=== PATIENT | male | born 1970 | race African-American/Black ===

== ENCOUNTER → 2019-06-14 12:00 | Outpatient (CLI) | payer OTHER, SELFPAY ==
--- NOTE | ~2019-06-14 | XR_ITS ---
XR chest 2V DATE: 06/14/2019 12:17 INDICATION: Cough TECHNIQUE: 2 views COMPARISON: None FINDINGS: Normal heart size. No hilar or mediastinal enlargement. No pulmonary infiltrate or consolidation, pleural effusion or pulmonary vascular congestion or pneumo thorax. IMPRESSION: No active cardiopulmonary disease Reviewed, dictated and finalized at location A.
== END ==
PROVIDERS: PCP Internal Medicine; Visit Provider Internal Medicine
DX: R05 Cough (principal)
CPT/HCPCS: 71046

== ENCOUNTER 2022-09-04 14:24 | Emergency (ER) | payer OTHER, SELFPAY ==
--- NOTE | 2022-09-04 14:29 | ED.URI ---
HPI - URI/Sore Throat General Chief Complaint: Upper Respiratory Infection Stated Complaint: cold symptoms Time Seen by Provider: 09/04/22 14:29 Source: patient Mode of arrival: ambulatory Limitations: no limitations History of Present Illness HPI Narrative: Patient is a 52-year-old male who presents with 2 weeks of cough along with intermittent congestion and sore throat. Patient has 1-year-old who goes to daycare and that has been having fevers and congestion. Denies any seasonal allergies and has not taken anything for symptoms. Denies any fever, chills, ear pain, sinus pressure, nausea, vomiting, diarrhea. No history of asthma, bronchitis or pneumonia. Related Data Allergies Allergy/AdvReac Type Severity Reaction Status Date / Time No Known Allergies Allergy Verified 09/04/22 15:21 Review of Systems Review of Systems: All systems reviewed & are unremarkable except as noted in HPI and below Constitutional: Constitutional: Denies body ache(s), Denies chills, Denies fatigue, Denies fever(s), Denies headache(s), Denies malaise and Denies weakness Eyes: Eyes: Denies blurry vision, Denies itchy eyes and Denies loss of vision ENT: Denies otalgia, Denies headache(s), Reports nasal congestion, Denies sinus pain and Reports sore throat Cardiovascular: Cardiovascular: Denies chest pain, Denies irregular heart rhythm and Denies dyspnea Respiratory: Respiratory: Reports cough and Denies dyspnea Gastrointestinal: Gastrointestinal: Denies abdominal pain, Denies diarrhea, Denies nausea and Denies vomiting Musculoskeletal: Musculoskeletal: Denies back pain, Denies myalgias and Denies arthralgias Integumentary/Breasts: Skin/Breast: Denies pruritus and Denies rash Neurologic: Denies headache(s), Denies loss of vision and Denies weakness Psychiatric: Psychiatric: Reports no additional psychiatric complaints Endocrine: Endocrine: Denies fatigue Allergic/Immunologic: Allergic/Immunologic: Denies itchy eyes PMFSH Comments At time of signature, agree with nursing past medical, surgical, social and family history. There is no relevant family history pertinent to the presenting complaint. Exam Const: General: cooperative, healthy appearing, comfortable, no acute distress and well nourished Nutritional Appearance: well nourished Orientation/consciousness: patient oriented x3 Limitations: no limitations HENMT: Head: normal to inspection, normocephalic and atraumatic Ears: hearing grossly normal bilaterally, external ears normal, TM's normal bilaterally, EAC's normal and no periauricular adenopathy Face/Nose/Sinus: Normal external nose present, Abnormal mucous membranes and turbinates present erythematous bilateral and diffuse, normal facial exam, sinuses nontender and face symmetric Face and sinus: normal facial exam, sinuses nontender and face symmetric Mouth: Yes Normal oral and palatal mucosa present, Yes lip normal, Yes tongue normal, Yes Normal salivary glands and ducts present, Yes oropharynx normal and Yes moist mucous membranes Teeth and gingiva: dentition normal Throat: uvula midline, abnormal tonsil bilateral erythema and hypertrophy 2+, posterior oropharynx abnormal erythema and postnasal drainage Eyes: General: appearance normal, both eyes and all related structures Alignment and Position: alignment normal and position normal Periorbital: periorbital findings normal Eyelids: eyelids normal Pupils: Equal, round and reactive pupils present Neck: Neck: normal visual inspection, full ROM, no lymphadenopathy and supple Chest: Chest palpation & inspection: normal inspection of the chest and normal palpation of entire chest wall Resp: Effort & Inspection: normal respiratory effort and able to speak in complete sentences Auscultation: clear to auscultation bilaterally, no crackles, no rales, no rhonchi and no wheezes Cardio: Rate: regular rate Rhythm: regular rhythm Heart sounds: S1 normal heart sound present and S2 normal
[2022-09-04 15:00] VITALS: BP 133/84; PULSE 93; RESP 20; TEMP 36.8; O2SAT 100
== END 2022-09-04 16:45 | disposition home or self-care (01) ==
PROVIDERS: Emergency Provider Nurse Practitioner Family; PCP Internal Medicine
DX: J06.9 Acute upper respiratory infection, unspecified (principal); I10 Essential (primary) hypertension
CPT/HCPCS: 99203; G0463

== ENCOUNTER 2023-08-09 09:56 | Emergency (ER) | payer OTHER, SELFPAY ==
[2023-08-09 10:09] VITALS: BP 126/40; PULSE 76; RESP 16; TEMP 36.7; O2SAT 100
[2023-08-09 10:11] VITALS: BP 126/40; PULSE 76; RESP 16; TEMP 36.7; O2SAT 100
--- NOTE | 2023-08-09 10:16 | ED.EYEPROB ---
HPI - Eye Problem General Chief complaint: Eye Problems Stated complaint: stye on lt eye Source: patient Mode of arrival: ambulatory Limitations: no limitations History of Present Illness HPI Narrative: 53 y/o male presented for c/o left upper eyelid swelling and pain x3 days. Started draining today. Endorses he has been getting styes to the lids for about 2 months, this is his 4th. He is using the left over erythromycin ointment as previously prescribed by his eye doctor. States he has appt 09/05. Denies vision changes, itching, photophobia, headache or dizziness. MD chief complaint: eye pain Related Data Home Medications Medication Instructions Recorded Confirmed amlodipine 10 mg tablet mg 08/09/23 duloxetine 60 mg capsule,delayed mg PO 08/09/23 release famotidine 40 mg tablet mg 08/09/23 gabapentin 100 mg capsule mg 08/09/23 losartan 100 mg tablet mg 08/09/23 montelukast 10 mg tablet 10 mg PO DAILY 08/09/23 08/09/23 (Singulair) pantoprazole 40 mg tablet,delayed mg PO 08/09/23 release rosuvastatin 10 mg tablet mg 08/09/23 valacyclovir 1 gram tablet mg 08/09/23 Allergies Allergy/AdvReac Type Severity Reaction Status Date / Time No Known Allergies Allergy Verified 08/09/23 10:09 Review of Systems Review of Systems: CONSTITUTIONAL: Denies body aches, fever, chills EYES:Endorses swelling, redness and pain to left eye; Denies visual changes, FB sensation, photophobia ENT: Denies rhinorrhea, congestion, sore throat, or otalgia. CARDIOVASCULAR: Denies chest pain, palpitations RESPIRATORY: Denies cough or dyspnea. GASTROINTESTINAL: Denies abdominal pain, nausea, vomiting, or diarrhea. SKIN: Denies rash, itching, or wounds. MUSCULOSKELETAL: Denies back pain, joint pain, or myalgia. NEUROLOGIC: Denies headache, numbness, tingling, or weakness. All systems reviewed & are unremarkable except as noted in HPI and below PMFSH Comments At time of signature, I have reviewed and agree with nursing past medical, surgical, social and family history unless otherwise noted. Please see nursing chart for further information. There is no relevant family history pertinent to the presenting complaint Exam Narrative: GENERAL: Well-appearing HEAD: Normocephalic, atraumatic. EYES: Left upper eye lid swelling/redness c/w stye, drainage noted. No conjunctival injection, PERRLA EOMI. Lid eversion shows no FB. ENT: Mucous membranes pink and moist. No rhinorrhea. ABDOMEN: Soft, nontender, nondistended SKIN: Warm, dry, no rash. Normal skin turgor. NEURO: No focal deficits. Alert and oriented x3 PSYCH: Normal affect. Course Course Emergency Course: Patient is aware of diagnosis, understands and agrees to treatment plan. Anticipatory guidance given. Patient agrees to follow-up as directed and is aware of reasons to seek care at the emergency department. Portions of this record may have been created with voice recognition software Level of Care: Express Care Visit Vital Signs Vital signs: Vital Signs Temperature 98.0 F 08/09/23 10:09 Pulse Rate 76 08/09/23 10:09 Respiratory Rate 16 08/09/23 10:09 Blood Pressure 126/40 L 08/09/23 10:09 Pulse Oximetry 100 08/09/23 10:09 Oxygen Delivery Room Air 08/09/23 10:09 Temperature 98.0 F 08/09/23 10:11 Pulse Rate 76 08/09/23 10:11 Respiratory Rate 16 08/09/23 10:11 Blood Pressure 126/40 L 08/09/23 10:11 Pulse Oximetry 100 08/09/23 10:11 Oxygen Delivery Room Air 08/09/23 10:11 MDM - Eye Problem MDM Narrative Medical decision making narrative: Discussed physical exam findings c/w stye. Will send cephalexin, pt is aware the main treatment for stye is warm compress to facilitate drainage. Advised supportive measures and signs/symptoms to go to the ER. Pt is appropriate for outpt treatment and f/u as scheduled. Differential Diagnosis Differential diagnosis: Likely corneal abrasion, conjunctivitis, acute i
[2023-08-09 10:35] VITALS: BP 109/79
== END 2023-08-09 10:35 | disposition home or self-care (01) ==
PROVIDERS: Emergency Provider Nurse Practitioner Family
DX: H00.014 Hordeolum externum left upper eyelid (principal); E78.00 Pure hypercholesterolemia, unspecified; I10 Essential (primary) hypertension; K21.9 Gastro-esophageal reflux disease without esophagitis
CPT/HCPCS: 99213; G0463